=== PATIENT | female | born 1995 | race Caucasian/White ===

== ENCOUNTER 2022-07-02 15:59 | Emergency (ER) | payer OTHER ==
[~2022-07-02] VITALS: Ht 167.6 cm; Wt 90.5 kg
[2022-07-02 16:57] LABS: BASO % 0.3 % (0.0-2.0); EOS # 0.1 K/mm3 (0.0-0.7); EOS % 0.8 % (0.0-4.0); GRAN # 10.9 K/mm3 (1.4-6.5); GRAN % 82.5 % (42.2-75.2); HEMATOCRIT 34.5 % (37.0-47.0); HEMOGLOBIN 10.5 g/dl (12.5-16.0); LYMPH # 0.9 K/mm3 (1.2-3.4); LYMPH % 6.5 % (20.0-51.0); MEAN CELL VOLUME 74 fl (80.0-100.0); MEAN CORPUSCULAR HEMOGLOBIN 22 pg (27-31); MEAN CORPUSCULAR HGB CONC 30 g/dl (33.0-37.0); MEAN PLATELET VOLUME 8.1 fl (7.4-10.4); MONO # 1.2 K/mm3 (0.1-0.6); MONO % 9.4 % (1.7-9.3); PLATELET COUNT 869 K/mm3 (130-400); RED BLOOD COUNT 4.69 M/mm3 (4.10-5.30); REDCELL DISTRIBUTION WIDTH-CV 15.9 % (11.5-14.5)
[2022-07-02 17:19] LABS: ALANINE AMINOTRANSFERASE 14 U/L (0-55); ALBUMIN 2.7 gm/dL (3.5-5.0); ALKALINE PHOSPHATASE 169 U/L (40-150); ANION GAP 14 mmol/L (7-16); AST,SGOT 26 U/L (5-34); BILIRUBIN,TOTAL 0.5 mg/dL (0.2-1.2); BLOOD UREA NITROGEN 8 mg/dL (7-19); CALCIUM 9.7 mg/dL (8.4-10.2); CARBON DIOXIDE 24 mmol/L (22-29); CHLORIDE 100 mmol/L (98-107); CREATININE, serum 0.72 mg/dL (0.57-1.11); GLUCOSE 84 mg/dL (70-99); POTASSIUM 3.8 mmol/L (3.5-4.5); SODIUM 138 mmol/L (136-145); TOTAL PROTEIN 8.6 gm/dL (6.2-8.1)
[2022-07-02 17:26] LABS: TROPONIN-I < 0.010 ng/mL (0.00-0.033)
[2022-07-03 00:10] VITALS: BP 126/87; PULSE 138; TEMP 99.6
== END 2022-07-03 00:10 | disposition short-term general hospital (02) ==
LOC: COL.ER 15:59
PROVIDERS: Personal Emergency Response Attendant
DX: J90 Pleural effusion, not elsewhere classified (principal); I31.39 Other pericardial effusion (noninflammatory); D64.9 Anemia, unspecified; D75.839 Thrombocytosis, unspecified; R59.9 Enlarged lymph nodes, unspecified; Z90.81 Acquired absence of spleen
CPT/HCPCS: J3480; J7050; Q9967